=== PATIENT | female | born 1955 | race Caucasian/White ===

== ENCOUNTER → 2018-04-06 | Outpatient (CLI) | payer BC ==
[~2018-04-06] MED LIST: CALCIUM 6001 TA1 PO; VITAMIN C500 MG PO; ZOLOFT 25MG25 MG PO
== END ==
LOC: MC.RAD 08:11
DX: Z12.31 Encounter for screening mammogram for malignant neoplasm of breast (principal)

== ENCOUNTER → 2018-04-13 | Outpatient (CLI) | payer BC | LOC: MC.RAD 10:18 | DX: N63.10 Unspecified lump in the right breast, unspecified quadrant (principal) ==

== ENCOUNTER → 2018-10-16 | Outpatient (CLI) | payer BC | LOC: MC.RAD 07:51 | DX: N63.10 Unspecified lump in the right breast, unspecified quadrant (principal) | CPT/HCPCS: G0279 ==